=== PATIENT | male | born 1940 | race Hispanic/Latino ===

== ENCOUNTER 2021-01-21 07:29 | Day surgery (SDC) | payer MEDICARE ==
[2021-01-15 13:33] LABS: BASOPHILS % (AUTO) 0.9 % (0.0-5.0); EOSINOPHILS % (AUTO) 3.2 % (0.0-8.0); HEMATOCRIT 37.9 % (42-54); LYMPHOCYTES % (AUTO) 28.6 % (21.0-51.0); MEAN CORPUSCULAR HEMOGLOBIN 33.2 pg (27.0-33.0); MEAN CORPUSCULAR HGB CONC 32.7 g/dL (32.0-36.0); MEAN CORPUSCULAR VOLUME 101.3 fL (79-99); MONOCYTES % (AUTO) 11.3 % (3.0-13.0); NEUTROPHILS % (AUTO) 55.8 % (40.0-77.0); PLATELET COUNT (AUTO) 185 K/uL (130-400); RED BLOOD CELL COUNT(AUTO) 3.74 MIL/uL (4.50-6.20); RED CELL DISTRIBUTION WIDTH 12.7 % (11.0-15.5); WHITE BLOOD COUNT (AUTO) 4.6 K/uL (4.8-10.8)
[2021-01-15 13:40] LABS: POTASSIUM 4.4 mmol/L (3.5-5.1)
[2021-01-20 09:51] VITALS: BP 140/69
[2021-01-21] VITALS (17 sets, daily range): BP systolic 115–156; BP diastolic 61–92
[~2021-01-21] VITALS: Ht 154.9 cm; Wt 77.5 kg
[2021-01-21] MEDS: CEFAZOLIN SODIUM 1 GM VIAL IVP SCH ×2 (06:00→09:10)
[~2021-01-21 07:29] MED LIST: ALPR-410 PO; DUTA0.5C37 PO; OXYB5TAB15 PO; SIMV10TA97 PO; SOLI5TAB6 PO; TAMS-1 PO
[2021-01-21] MEDS ORDERED: ATOR10TA69 PO (08:02)
[2021-01-21] MEDS ORDERED: LIDOCAINE PF 100MG/5ML (2%) SYRINGE 5ML ONE (08:24)
[2021-01-21] MEDS ORDERED: PROPOFOL 10 MG/ML 20ML VIAL IV ONE ×3 (08:25→09:37)
[2021-01-21] MEDS ORDERED: BACITRACIN 28.4 GM OINT TP ONE (08:42)
[2021-01-21] MEDS ORDERED: LACTATED RINGERS 1000ML 1,000 ML IV ONE (08:42)
[2021-01-21] MEDS ORDERED: BUPIVACAINE/PF 0.25% 30ML VIAL IJ ONE (08:42)
[2021-01-21] MEDS ORDERED: LIDOCAINE HCL 1% 20 ML VIAL ONE (09:06)
== END 2021-01-21 12:00 | disposition home or self-care (01) ==
LOC: DAH 07:29
PROVIDERS: ATTEND Urology
DX: N47.1 Phimosis (principal); Z20.822 Contact with and (suspected) exposure to COVID-19; N48.0 Leukoplakia of penis; E78.5 Hyperlipidemia, unspecified; Z85.46 Personal history of malignant neoplasm of prostate
CPT/HCPCS: 36415; 54161; 71045; 80048; 85025; 87635; 93005; A4215; A4221; A4222; A4223; A4600; A4606; A4663; A6260; C9803; J0690; J2001; J2704 ×3; J3490; J7120